=== PATIENT | female | born 1980 | race Caucasian/White ===

== ENCOUNTER 2016-12-20 15:55 | Day surgery (SDC) | payer OTHER, MEDICAID ==
[~2016-12-20 15:55] MED LIST: Bacitracin Oint 1 GM U/D Packet ONE; Bupivacaine 0.5% 50 ML MDV ONE; Lidocaine 1% with EPINEPHrine 1:100,000 50 ML MDV ONE
[2016-12-20] MEDS ORDERED: Lidocaine 1% with EPINEPHrine 1:100,000 50 ML MDV ONE (16:03)
[2016-12-20] MEDS ORDERED: Bacitracin Oint 1 GM U/D Packet ONE (16:03)
[2016-12-20] MEDS ORDERED: Bupivacaine 0.5% 50 ML MDV ONE (16:03)
[2016-12-20 16:14] VITALS: BP 136/83
[2016-12-20] MEDS ORDERED: Propofol 200 MG/20 ML SDV ONE ×2 (16:19→17:43)
[2016-12-20] MEDS ORDERED: fentaNYL 100 MCG/2 ML SDV ONE (16:19)
[2016-12-20] MEDS ORDERED: Midazolam 1 MG/ML 2 ML SDV ONE (16:20)
[2016-12-20] MEDS ORDERED: Lactated Ringers 1,000 ML IV SCH (16:30)
--- NOTE | 2016-12-21 07:36 | OR ---
DATE OF PROCEDURE: 12/20/2016 PREOPERATIVE DIAGNOSIS: Right temporal and eye pain, normal erythrocyte sedimentation rate. POSTOPERATIVE DIAGNOSIS: Right temporal and eye pain, normal erythrocyte sedimentation rate. PROCEDURE: Right temporal artery biopsy removing a 4.7 cm segment of the artery. ANESTHESIA: IV anesthesia with monitored anesthesia care. INDICATIONS: This 36-year-old white female complains of right-sided face pain and right eye pain for a month, it is not getting better. She saw optometry and was concerned about temporal arteritis and was referred for a right temporal artery biopsy. Her sedimentation rate today is normal at 13. I counseled her for right temporal artery biopsy including risks and alternatives, and she gave her informed consent to proceed. DESCRIPTION OF PROCEDURE: After adequate IV anesthesia was obtained, the right side of the patient's face was prepped and draped in the usual sterile fashion. Time-out was held. Lidocaine 1% with epinephrine in a 50:50 mix with 0.5% Marcaine was infiltrated about the course of the temporal artery. This had been previously marked using a Doppler. The planned incision coursed from the preauricular area superiorly and curved anteriorly. The incision was then made in the preauricular area. The artery was identified. It was followed up superiorly and then curved anteriorly. A segment of artery measuring 4.7 cm was excised and sent to the laboratory. 3-0 Vicryl was used to ligate the vessel ends. The incision was irrigated and dried. All looked well. The skin was closed with subcuticular stitch of 4- 0 Vicryl. Dermabond was applied. The patient tolerated the procedure well and was brought from the operating room in good condition. Isai Mars MD /[id number] [email or web address]
== END 2016-12-20 19:10 | disposition home or self-care (01) ==
LOC: JP.SDS 15:55
PROVIDERS: ATTEND Surgery
DX: H57.11 Ocular pain, right eye (principal); F41.9 Anxiety disorder, unspecified; F32.9 Major depressive disorder, single episode, unspecified; E66.9 Obesity, unspecified; Z88.8 Allergy status to other drugs, medicaments and biological substances
CPT/HCPCS: 36415; 37609; 85651; J2250; J2704; J3010; J7120; 88305; 88313

== ENCOUNTER 2020-01-27 11:39 | Emergency (ER) | payer SELFPAY ==
[2020-01-27 11:57] VITALS: BP 152/83; PULSE 123
[2020-01-27] MEDS ORDERED: Silver Sulfadiazine 1% Crm 400 GM Jar TOP ONE (12:04)
[2020-01-27] MEDS ORDERED: Ketorolac 60 MG/2 ML SDV IM ONE (12:04)
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
[2020-01-27] MEDS ORDERED: Silver Sulfadiazine 1% Crm 50 GM Tube TOP ONE (12:30)
== END 2020-01-27 12:55 | disposition home or self-care (01) ==
LOC: JP.ED 11:39
DX: T24.201A Burn of second degree of unspecified site of right lower limb, except ankle and foot, initial encounter (principal); X12.XXXA Contact with other hot fluids, initial encounter; Z88.5 Allergy status to narcotic agent; Z79.899 Other long term (current) drug therapy
CPT/HCPCS: 16020; 96372; 99283; A9270; J1885

== ENCOUNTER 2021-05-29 10:28 | Inpatient (IN) | payer MEDICAID ==
[2021-05-29] MEDS ORDERED: Sodium Chloride 0.9% 10 ML Syringe FLUSH PRN ×2 (11:02→14:59)
[2021-05-29] MEDS ORDERED: Ketorolac 30 MG/ML SDV IVPUSH ONE (11:02)
--- NOTE | 2021-05-29 11:08 | EDM.PDOC ---
ED HPI GENERAL MEDICAL PROBLEM - General Chief Complaint: Abdominal Pain Stated Complaint: BELLY PAIN Time Seen by Provider: 05/29/21 10:50 Source of Information: Reports: Patient, Old Records, RN History Limitations: Reports: No Limitations - History of Present Illness INITIAL COMMENTS - FREE TEXT/NARRATIVE: 41 yo female here with RLQ pain that began yesterday. No fever. No hx of any abdominal surgeries. Has had only a LEEP procedure. Has had intermittent nausea. Pain is progressive. Pain worse with walking, coughing, or sneezing. Onset: Gradual Onset Date: 05/28/21 Duration: Day(s): (1), Getting Worse Location: Reports: Abdomen Quality: Reports: Ache Severity: Moderate Improves with: Reports: None Worsens with: Reports: Other (time, movement) Context: Reports: Other (See HPI) Associated Symptoms: Reports: Nausea/Vomiting (no vomiting). Denies: Fever/Chills, Rash Treatments SHOP GIRL: Reports: Other (see below) (none) - Related Data Allergies Allergy/AdvReac Type Severity Reaction Status Date / Time codeine Allergy Rash Verified 05/29/21 10:45 Home Meds: Home Meds Levonorgestrel [Mirena] 1 device IUTERINE ASDIRECTED 12/20/16 [History] Tretinoin [Retin-A] 1 applic TOP QPM 12/20/16 [History] DULoxetine [Cymbalta] 20 mg PO DAILY 01/27/20 [History] Diclofenac Sodium 1,000 gm MC DAILY 01/27/20 [History] tiZANidine 2 mg PO BID 01/27/20 [History] Past Medical History - Past Health History Medical/Surgical History: Denies Medical/Surgical History HEENT History: Reports: Impaired Vision Cardiovascular History: Reports: None Genitourinary History: Reports: None [employer] 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: Endometriosis, , Other (See Below) Other [employer] History: IUD in Musculoskeletal History: Reports: Arthritis, Back Pain, Chronic Neurological History: Reports: Concussion, Headaches, Chronic Psychiatric History: Reports: Anxiety, Depression - Past Surgical History Head Surgeries/Procedures: Reports: None HEENT Surgical History: Reports: Oral Surgery Other HEENT Surgeries/Procedures: wears contacts Female Surgical History: Reports: D&C, LEEP Neurological Surgical History: Reports: None Musculoskeletal Surgical History: Reports: None Dermatological Surgical History: Reports: None Social & Family History - Tobacco Use Tobacco Use Status *Q: Never Tobacco User - Caffeine Use Caffeine Use: Reports: Coffee Other Caffeine Use: unable to get information - Recreational Drug Use Recreational Drug Use: No ED ROS GENERAL - Review of Systems Review Of Systems: See Below Constitutional: Reports: No Symptoms HEENT: Reports: No Symptoms Respiratory: Reports: No Symptoms Cardiovascular: Reports: No Symptoms GI/Abdominal: Reports: Abdominal Pain, Nausea. Denies: Vomiting : Reports: Frequency Musculoskeletal: Reports: No Symptoms Skin: Reports: No Symptoms Neurological: Reports: No Symptoms ED EXAM, GI/ABD - Physical Exam Exam: See Below Exam Limited By: No Limitations General Appearance: Alert, WD/WN, No Apparent Distress Eyes: Bilateral: Normal Appearance Ears: Normal External Exam, Normal Canal, Hearing Grossly Normal, Normal TMs Nose: Normal Inspection, No Blood Throat/Mouth: Normal Inspection, Normal Lips, Normal Oropharynx, Normal Voice, No Airway Compromise Head: Atraumatic, Normocephalic Neck: Normal Inspection, Non-Tender Respiratory/Chest: No Respiratory Distress, Lungs Clear, Normal Breath Sounds, No Accessory Muscle Use Cardiovascular: Regular Rate, Rhythm, No Edema GI/Abdominal Exam: Normal Bowel Sounds, Soft, Non-Tender, No Distention. No: Distended Back Exam: Normal Inspection. No: CVA Tenderness (R), CVA Tenderness (L) Extremities: Normal Inspection, Normal Range of Motion, Non-Tender, No Pedal Edema Neurological: Alert, Oriented, CN II-XII Intact, Normal Cognition, No Motor/Sensory Deficits Psychiatric: Normal Affect, Normal Mood Skin Exam: Warm, Dry, Intact, Normal Color, No Rash Course - Vital Signs Text/Narrative:: Dr. Jacquelin Tello called @ 1308h Dr. Dodd called @ 1312h Last Recorded V/S: Last Vital Signs Temp 35.7 C L 05/29/21 10:46 Pulse 98 05/29/21 10:46 Resp 17 05/29/21 10:46 BP 143/85 H 05/29/21 10:46 Pulse Ox 100 05/29/21 10:46 - Orders/Labs/Meds Orders: Active Orders 24 hr Category Date Time Status Sodium Chloride 0.9% [Normal Saline] 80 ml Med 05/29/21 12:00 Active IV ASDIRECTED Sodium Chloride 0.9% [Saline Flush] Med 05/29/21 11:02 Active 10 ml FLUSH ASDIRECTED PRN Saline Lock Insert [OM.PC] Routine Oth 05/29/21 11:02 Ordered Medication Orders Sodium Chloride (Normal Saline) 80 mls @ 3 mls/sec IV ASDIRECTED JUDI Stop: 05/29/21 16:00 Last Admin: 05/29/21 12:13 Dose: 3 mls/sec Documented by: NAILA Sodium Chloride (Sodium Chloride 0.9% 10 Ml Syringe) 10 ml FLUSH ASDIRECTED PRN PRN Reason: Keep Vein Open Last Admin: 05/29/21 11:15 Dose: 10 ml Documented by: TWIN Labs: Laboratory Tests 05/29/21 05/29/21 05/29/21 Range/Units 11:06 11:06 11:45 WBC 18.0 H (4.5-11.0) K/uL RBC 4.21 (3.30-5.50) M/uL Hgb 13.7 (12.0-15.0) g/dL Hct 38.8 (36.0-48.0) % MCV 92 (80-98) fL MCH 33 H (27-31) pg MCHC 35 (32-36) % Plt Count 178 (150-400) K/uL Sodium 134 L (140-148) mmol/L Potassium 3.9 (3.6-5.2) mmol/L Chloride 99 L (100-108) mmol/L Carbon Dioxide 25 (21-32) mmol/L Anion Gap 13.9 (5.0-14.0) mmol/L BUN 9 (7-18) mg/dL Creatinine 0.8 (0.6-1.0) mg/dL Est Cr Clr Drug Dosing 96.71 mL/min Estimated GFR (MDRD) > 60 (>60) Glucose 118 H (74-106) mg/dL Calcium 9.3 (8.5-10.1) mg/dL Urine Color Yellow (YELLOW) Urine Appearance Clear (CLEAR) Urine pH 6.5 (5.0-8.0) Ur Specific [place] 1.015 (1.008-1.030) Urine Protein Negative (NEGATIVE) mg/dL Urine Glucose (UA) Negative (NEGATIVE) mg/dL Urine Ketones 80 H (NEGATIVE) mg/dL Urine Occult Blood Negative (NEGATIVE) Urine Nitrite Negative (NEGATIVE) Urine Bilirubin Negative (NEGATIVE) Urine Urobilinogen 0.2 (0.2-1.0) EU/dL Ur Leukocyte Esterase Small H (NEGATIVE) Urine RBC Not seen (0-5) Urine WBC 0-5 (0-5) Ur Epithelial Cells Many Amorphous Sediment Few Urine Bacteria Moderate Urine Mucus Many Urine HCG, Qual 05/29/21 Range/Units 11:45 WBC (4.5-11.0) K/uL RBC (3.30-5.50) M/uL Hgb (12.0-15.0) g/dL Hct (36.0-48.0) % MCV (80-98) fL MCH (27-31) pg MCHC (32-36) % Plt Count (150-400) K/uL Sodium (140-148) mmol/L Potassium (3.6-5.2) mmol/L Chloride (100-108) mmol/L Carbon Dioxide (21-32) mmol/L Anion Gap (5.0-14.0) mmol/L BUN (7-18) mg/dL Creatinine (0.6-1.0) mg/dL Est Cr Clr Drug Dosing mL/min Estimated GFR (MDRD) (>60) Glucose (74-106) mg/dL Calcium (8.5-10.1) mg/dL Urine Color (YELLOW) Urine Appearance (CLEAR) Urine pH (5.0-8.0) Ur Specific [place] (1.008-1.030) Urine Protein (NEGATIVE) mg/dL Urine Glucose (UA) (NEGATIVE) mg/dL Urine Ketones (NEGATIVE) mg/dL Urine Occult Blood (NEGATIVE) Urine Nitrite (NEGATIVE) Urine Bilirubin (NEGATIVE) Urine Urobilinogen (0.2-1.0) EU/dL Ur Leukocyte Esterase (NEGATIVE) Urine RBC (0-5) Urine WBC (0-5) Ur Epithelial Cells Amorphous Sediment Urine Bacteria Urine Mucus Urine HCG, Qual Negative Meds: Medications Generic Name Dose Route Start Last Admin Trade Name Freq PRN Reason Stop Dose Admin Sodium Chloride 80 mls @ 3 mls/sec 05/29/21 12:00 05/29/21 12:13 Normal Saline IV 05/29/21 16:00 3 mls/sec ASDIRECTED JUDI Administration Sodium Chloride 10 ml 05/29/21 11:02 05/29/21 11:15 Sodium Chloride 0.9% 10 Ml Syringe FLUSH 10 ml ASDIRECTED PRN Administration Keep Vein Open Discontinued Medications Generic Name Dose Route Start Last Admin Trade Name Nelda PRN Reason Stop Dose Admin Iopamidol 120 ml 05/29/21 12:00 05/29/21 12:13 Iopamidol 612 Mg/Ml 150 Ml Bottle IV 05/29/21 12:01 120 ml . DIRECTED JUDI Administration Ketorolac Tromethamine 30 mg 05/29/21 11:02 05/29/21 11:13 Ketorolac 30 Mg/Ml Sdv IVPUSH 05/29/21 11:03 30 mg ONETIME ONE Administration Sodium Chloride 10 ml 05/29/21 11:46 05/29/21 12:13 Sodium Chloride 0.9% 10 Ml Syringe FLUSH 05/29/21 11:47 10 ml ONETIME ONE Administration - Radiology Interpretation Free Text/Narrative:: CT scan of abd/pelvis with IV contrast- Departure - Departure Time of Disposition: 13:45 Disposition: Admitted As Inpatient 66 Condition: Fair Clinical Impression: Acute appendicitis Qualifiers: Acute appendicitis type: with localized peritonitis Appendicitis gangrene presence: unspecified whether gangrene present Appendicitis perforation presence: without perforation Appendicitis abscess presence: without abscess Qualified Code(s): K35.30 - Acute appendicitis with localized peritonitis, without perforation or gangrene - Discharge Information *PRESCRIPTION DRUG MONITORING PROGRAM REVIEWED*: Not Applicable *COPY OF PRESCRIPTION DRUG MONITORING REPORT IN PATIENT TING: Not Applicable Referrals: Stevenson Buchanan MD [Primary Care Provider] - Forms: ED Department Discharge Sepsis Event Note (ED) - Focused Exam Vital Signs: Vital Signs Temp Pulse Resp BP Pulse Ox 05/29/21 10:46 35.7 C L 98 17 143/85 H 100 05/29/21 10:44 35.7 C L 98 17 143/85 H 100 - My Orders Last 24 Hours: My Active Orders 05/29/21 11:02 Sodium Chloride 0.9% [Saline Flush] 10 ml FLUSH ASDIRECTED PRN Saline Lock Insert [OM.PC] Routine 05/29/21 12:00 Sodium Chloride 0.9% [Normal Saline] 80 ml IV ASDIRECTED - Assessment/Plan Last 24 Hours: My Active Orders 05/29/21 11:02 Sodium Chloride 0.9% [Saline Flush] 10 ml FLUSH ASDIRECTED PRN Saline Lock Insert [OM.PC] Routine 05/29/21 12:00 Sodium Chloride 0.9% [Normal Saline] 80 ml IV ASDIRECTED
[2021-05-29] MEDS ORDERED: Sodium Chloride 0.9% 10 ML Syringe FLUSH ONE (11:46)
[2021-05-29] MEDS ORDERED: Sodium Chloride 0.9% 80 ML IV SCH (12:00)
[2021-05-29] MEDS ORDERED: Iopamidol 612 MG/ML 150 ML Bottle IV SCH (12:00)
--- NOTE | 2021-05-29 12:56 | CRLCT ---
For Patients: As a result of the Century Cures Act, medical imaging exams and procedure reports are released immediately into your electronic medical record. You may view this report before your referring provider. If you have questions, please contact your health care provider. HISTORY: Right lower quadrant abdominal pain. TECHNIQUE: Intravenous contrast enhanced CT of the abdomen and pelvis. 120 mL of intravenous contrast administered. COMPARISON: No prior. FINDINGS: No focal liver parenchymal abnormality. No biliary duct dilatation. Gallbladder is mildly distended. The spleen and adrenal glands are normal. No focal pancreatic abnormality. Symmetric nephrograms. No renal mass. No obstructive calculus or hydronephrosis. Urinary bladder is nondistended. Pelvic calcifications likely represent phleboliths. There is an IUD within the uterus. Small follicles within the left ovary. - No small bowel obstruction. Appendix is dilated measuring 12 mm. There is mild haziness of the periappendiceal fat. Findings compatible with appendicitis. Trace amount of right posterior pelvic free fluid without localized collection. No free intraperitoneal air. No diverticulitis. Small fat containing umbilical hernia. - No abdominal aortic aneurysm. - Mild atelectasis within the lungs. No consolidation. No pleural effusion. - Degenerative changes of the spine. No acute fractures. Degenerative changes of the sacroiliac joints. Mild degenerative changes of the hips. IMPRESSION: 1. Dilated appendix measuring 12 mm with periappendiceal fat haziness, compatible with appendicitis. 2. No abscess or free air. - Findings discussed with Dr. Lazo on 05/29/2021 at 12:55 hours. Dictated by Thai Colbert MD @ 05/29/2021 12:45:30 PM Please note that all CT scans at this facility use dose modulation, iterative reconstruction, and/or weight-based dosing when appropriate to reduce radiation dose to as low as reasonably achievable. Dictated by: Thai Colbert MD @ 05/29/2021 12:55:27 (Electronically Signed)
--- NOTE | 2021-05-29 13:42 | PCM.HP.2 ---
H&P History of Present Illness - General Date of Service: 05/29/21 Admit Problem/Dx: Admission Diagnosis/Problem Admission Diagnosis/Problem Appendicitis Source of Information: Patient, Provider, RN Notes Reviewed History Limitations: Reports: No Limitations - History of Present Illness Initial Comments - Free Text/Narative: Ms. Simpson is a 41-year-old woman who was admitted through the emergency department with nausea and abdominal pain secondary to acute appendicitis. She noted onset of abdominal pain yesterday associated with nausea and has had 2 episodes of vomiting. She is noted chills and diaphoresis but denies temperature elevation. Because of progressive pain she presented to the emergency department for further evaluation. White blood cell count and CRP are elevated. CT scan of the abdomen shows evidence of acute appendicitis with no obvious complications. - Related Data Allergies/Adverse Reactions: Allergies Allergy/AdvReac Type Severity Reaction Status Date / Time codeine Allergy Rash Verified 05/29/21 10:45 Home Medications: Home Meds Levonorgestrel [Mirena] 1 device IUTERINE ASDIRECTED 12/20/16 [History] Tretinoin [Retin-A] 1 applic TOP QPM 12/20/16 [History] DULoxetine [Cymbalta] 20 mg PO DAILY 01/27/20 [History] Diclofenac Sodium 1,000 gm MC DAILY 01/27/20 [History] tiZANidine 2 mg PO BID 01/27/20 [History] Past Medical History - Past Health History Medical/Surgical History: Denies Medical/Surgical History HEENT History: Reports: Impaired Vision Cardiovascular History: Reports: None Genitourinary History: Reports: None MANAGER TRAINING AND DEVELOPMENT History: Reports: Endometriosis, , Other (See Below) Other OB/BYN History: IUD in Musculoskeletal History: Reports: Arthritis, Back Pain, Chronic Neurological History: Reports: Concussion, Headaches, Chronic Psychiatric History: Reports: Anxiety, Depression - Past Surgical History Head Surgeries/Procedures: Reports: None HEENT Surgical History: Reports: Oral Surgery Other HEENT Surgeries/Procedures: wears contacts Female Surgical History: Reports: D&C, LEEP Neurological Surgical History: Reports: None Musculoskeletal Surgical History: Reports: None Dermatological Surgical History: Reports: None Social & Family History - Tobacco Use Tobacco Use Status *Q: Never Tobacco User - Caffeine Use Caffeine Use: Reports: Coffee Other Caffeine Use: unable to get information - Recreational Drug Use Recreational Drug Use: No H&P Review of Systems - Review of Systems: Review Of Systems: See Below General: Reports: Chills, Malaise, Diaphoresis, Decreased Appetite HEENT: Reports: No Symptoms Pulmonary: Reports: No Symptoms Cardiovascular: Reports: No Symptoms Gastrointestinal: Reports: Abdominal Pain, Diarrhea, Distension, Nausea, Vomiting. Denies: Constipation, Difficulty Swallowing, Hematemesis, Hematochezia, Melena Genitourinary: Reports: No Symptoms Musculoskeletal: Reports: No Symptoms Skin: Reports: No Symptoms Psychiatric: Reports: No Symptoms Neurological: Reports: No Symptoms Hematologic/Lymphatic: Reports: No Symptoms Immunologic: Reports: No Symptoms Exam - Exam Exam: See Below - Vital Signs Vital Signs: Last Vital Signs Temp 96.3 F L 05/29/21 10:46 Pulse 98 05/29/21 10:46 Resp 17 05/29/21 10:46 BP 143/85 H 05/29/21 10:46 Pulse Ox 100 05/29/21 10:46 Weight: 195 lb 1.745 oz - Exam Quality Assessment: DVT Prophylaxis General: Alert, Oriented, Cooperative, Moderate Distress HEENT: Conjunctiva Clear, Hearing Intact, Mucosa Moist & Dunn, Normal Nasal S eptum, Posterior Pharynx Clear, Pupils Equal Neck: Supple, Trachea Midline, +2 Carotid Pulse wo Bruit Lungs: Clear to Auscultation, Normal Respiratory Effort Cardiovascular: Regular Rate, Regular Rhythm, Normal S1, Normal S2. No: Systolic Murmur, Diastolic Murmur GI/Abdominal Exam: Soft, Non-Tender, No Organomegaly, No Distention Back Exam: Normal Inspection, Full Range of Motion Extremities: Non-Tender, No Pedal Edema Skin: Warm, Dry, Intact Neurological: Cranial Nerves Intact, Strength Equal Bilateral, Normal Speech, Normal Tone, Sensation Intact. No: Focal Deficit Neuro Extensive - Mental Status: Alert, Oriented x3, Normal Mood/Affect, Normal Cognition, Memory Intact - Patient Data Lab Results Last 24 hrs: Laboratory Results - last 24 hr 05/29/21 05/29/21 05/29/21 Range/Units 11:06 11:06 11:45 WBC 18.0 H (4.5-11.0) K/uL RBC 4.21 (3.30-5.50) M/uL Hgb 13.7 (12.0-15.0) g/dL Hct 38.8 (36.0-48.0) % MCV 92 (80-98) fL MCH 33 H (27-31) pg MCHC 35 (32-36) % Plt Count 178 (150-400) K/uL Sodium 134 L (140-148) mmol/L Potassium 3.9 (3.6-5.2) mmol/L Chloride 99 L (100-108) mmol/L Carbon Dioxide 25 (21-32) mmol/L Anion Gap 13.9 (5.0-14.0) mmol/L BUN 9 (7-18) mg/dL Creatinine 0.8 (0.6-1.0) mg/dL Est Cr Clr Drug Dosing 96.71 mL/min Estimated GFR (MDRD) > 60 (>60) Glucose 118 H (74-106) mg/dL Calcium 9.3 (8.5-10.1) mg/dL Urine Color Yellow (YELLOW) Urine Appearance Clear (CLEAR) Urine pH 6.5 (5.0-8.0) Ur Specific [place] 1.015 (1.008-1.030) Urine Protein Negative (NEGATIVE) mg/dL Urine Glucose (UA) Negative (NEGATIVE) mg/dL Urine Ketones 80 H (NEGATIVE) mg/dL Urine Occult Blood Negative (NEGATIVE) Urine Nitrite Negative (NEGATIVE) Urine Bilirubin Negative (NEGATIVE) Urine Urobilinogen 0.2 (0.2-1.0) EU/dL Ur Leukocyte Esterase Small H (NEGATIVE) Urine RBC Not seen (0-5) Urine WBC 0-5 (0-5) Ur Epithelial Cells Many Amorphous Sediment Few Urine Bacteria Moderate Urine Mucus Many Urine HCG, Qual 05/29/21 Range/Units 11:45 WBC (4.5-11.0) K/uL RBC (3.30-5.50) M/uL Hgb (12.0-15.0) g/dL Hct (36.0-48.0) % MCV (80-98) fL MCH (27-31) pg MCHC (32-36) % Plt Count (150-400) K/uL Sodium (140-148) mmol/L Potassium (3.6-5.2) mmol/L Chloride (100-108) mmol/L Carbon Dioxide (21-32) mmol/L Anion Gap (5.0-14.0) mmol/L BUN (7-18) mg/dL Creatinine (0.6-1.0) mg/dL Est Cr Clr Drug Dosing mL/min Estimated GFR (MDRD) (>60) Glucose (74-106) mg/dL Calcium (8.5-10.1) mg/dL Urine Color (YELLOW) Urine Appearance (CLEAR) Urine pH (5.0-8.0) Ur Specific [place] (1.008-1.030) Urine Protein (NEGATIVE) mg/dL Urine Glucose (UA) (NEGATIVE) mg/dL Urine Ketones (NEGATIVE) mg/dL Urine Occult Blood (NEGATIVE) Urine Nitrite (NEGATIVE) Urine Bilirubin (NEGATIVE) Urine Urobilinogen (0.2-1.0) EU/dL Ur Leukocyte Esterase (NEGATIVE) Urine RBC (0-5) Urine WBC (0-5) Ur Epithelial Cells Amorphous Sediment Urine Bacteria Urine Mucus Urine HCG, Qual Negative Result Diagrams: 05/29/21 11:06 05/29/21 11:06 Sepsis Event Note - Focused Exam Vital Signs: Vital Signs Temp Pulse Resp BP Pulse Ox 05/29/21 10:46 96.3 F L 98 17 143/85 H 100 05/29/21 10:44 96.3 F L 98 17 143/85 H 100 *Q Meaningful Use (ADM) - VTE Risk Assess *Q Each Risk Factor Represents 1 Point: Age 41 - 59 years, Obesity ( BMI > 25 kg/m2) Total Score 1 Point Risk Factors: 2 Each Risk Factor Represents 2 Points: None Total Score 2 Point Risk Factors: 0 Each Risk Factor Represents 3 Points: None Total Score 3 Point Risk Factors: 0 Each Risk Factor Represents 5 Points: None Total Score 5 Point Risk Factors: 0 Venous Thromboembolism Risk Factor Score *Q: 2 Problem List Initiated/Reviewed/Updated: Yes Orders Last 24hrs: Active Orders 24 hr Category Date Time Status Patient Status Manage Transfer [TRANSFER] Routine ADT 05/29/21 13:31 Active Ampicillin/Sulbactam Na [Unasyn] 1.5 gm Med 05/29/21 13:45 Ordered Sodium Chloride 0.9% [Normal Saline] 50 ml IV Q6HR Sodium Chloride 0.9% [Normal Saline] 80 ml Med 05/29/21 12:00 Active IV ASDIRECTED Sodium Chloride 0.9% [Saline Flush] Med 05/29/21 11:02 Active 10 ml FLUSH ASDIRECTED PRN Saline Lock Insert [OM.PC] Routine Oth 05/29/21 11:02 Ordered Resuscitation Status Routine Resus Stat 05/29/21 13:36 Ordered Medication Orders Sodium Chloride (Normal Saline) 80 mls @ 3 mls/sec IV ASDIRECTED JUDI Stop: 05/29/21 16:00 Last Admin: 05/29/21 12:13 Dose: 3 mls/sec Documented by: THELAS Ampicillin Sodium/Sulbactam (Sodium 1.5 gm/ Sodium Chloride) 50 mls @ 100 mls/hr IV Q6HR JUDI Sodium Chloride (Sodium Chloride 0.9% 10 Ml Syringe) 10 ml FLUSH ASDIRECTED PRN PRN Reason: Keep Vein Open Last Admin: 05/29/21 11:15 Dose: 10 ml Documented by: TWIN Assessment/Plan Comment:: ASSESSMENT AND PLAN ACUTE APPENDICITIS-onset of symptoms yesterday with progressive increase in abdominal pain since then. Dr. Tello has been contacted through the emergency department and requests admission. -N.p.o. -Surgery consult, Dr. Tello -IV fluids for hydration -Pain and nausea medications as needed -Unasyn 1.5 g IV every 6 hours MAINTENANCE ISSUES -DVT prophylaxis; SCUDs -GI prophylaxis; not indicated -Aiken catheter; not indicated -Nutrition; n.p.o. -Nicotine dependence; not required CODE STATUS-FULL CODE ADMISSION STATUS-patient will be admitted to inpatient status, expect at least a 2 night hospital stay for evaluation and management of problems as outlined above. At the time of this admission I do not reasonably expected evaluation and management of this problem will require more than a 96 hour hospital stay. DISPOSITION-anticipate discharge to home after the hospital stay. PRIMARY CARE PROVIDER-Dr. Buchanan - Mortality Measure Prognosis:: Good
[2021-05-29] MEDS ORDERED: Ampicillin/Sulbactam Na 1.5 GM in Sodium Chloride 0.9% 50 ML IV SCH (14:00)
[2021-05-29] MEDS: HYDROmorphone 0.5 MG/0.5 ML Syringe IVPUSH PRN ×3 (15:17→20:35)
[2021-05-29] MEDS: Ampicillin/Sulbactam Na 1.5 GM in Sodium Chloride 0.9% 50 ML IV SCH ×2 (15:21→20:30)
[2021-05-29] MEDS: Ondansetron 4 MG/2 ML SDV IV PRN ×2 (15:21→20:35)
[2021-05-29] MEDS: Lactated Ringers 1,000 ML IV SCH ×2 (15:43→23:30)
[2021-05-29] MEDS ORDERED: TRETINOIN TOP SCH (17:00)
[2021-05-30] MEDS: Ampicillin/Sulbactam Na 1.5 GM in Sodium Chloride 0.9% 50 ML IV SCH ×4 (03:56→21:07)
[2021-05-30] MEDS ORDERED: Bupivacaine 0.5%/EPINEPHrine 1:200,000 50 ML MDV ONE (07:00)
[2021-05-30] MEDS ORDERED: fentaNYL 250 MCG/5 ML SDV ONE ×2 (07:11→08:49)
[2021-05-30] MEDS ORDERED: Succinylcholine 200 MG/10 ML MDV ONE (07:12)
[2021-05-30] MEDS ORDERED: Glycopyrrolate 0.2 MG/ML 5 ML MDV ONE (07:12)
[2021-05-30] MEDS ORDERED: Rocuronium 50 MG/5 ML Vial ONE (07:12)
[2021-05-30] MEDS ORDERED: Ondansetron 4 MG/2 ML SDV ONE (07:12)
[2021-05-30] MEDS ORDERED: Dexamethasone 4 MG/ML SDV ONE (07:12)
[2021-05-30] MEDS ORDERED: Neostigmine Methylsulfate 1 MG/ML 5 ML Syringe ONE (07:12)
[2021-05-30] MEDS ORDERED: Propofol 200 MG/20 ML SDV ONE (07:12)
[2021-05-30] MEDS: Ondansetron 4 MG/2 ML SDV IV PRN ×2 (07:26→16:37)
[2021-05-30] MEDS: HYDROmorphone 0.5 MG/0.5 ML Syringe IVPUSH PRN ×2 (07:26→11:07)
[2021-05-30] MEDS ORDERED: Ropivacaine 44 ML, dexAMETHasone 8 MG, EPINEPHrine 0.4 MG, Sodium Chloride 0.9% 33.6 ML NERVRT SCH ×4 (08:00)
[2021-05-30] MEDS ORDERED: DULoxetine 20 MG Cap PO SCH (09:00)
[2021-05-30] MEDS ORDERED: fentaNYL 100 MCG/2 ML SDV IVPUSH ONE (09:44)
[2021-05-30] MEDS ORDERED: hydrOXYzine HCL 100 MG/2 ML SDV IM ONE (09:44)
--- NOTE | 2021-05-30 10:00 | HP ---
HISTORY OF PRESENT ILLNESS: Carmen is n.p.o. She came into the emergency room yesterday with nausea, abdominal pain, and was diagnosed with an acute appendicitis. HOME MEDICATIONS: 1. Mirena IUD. 2. Retin-A one topical. 3. Cymbalta 20 mg p.o. daily. 4. Diclofenac sodium 1,000 gm daily. 5. Tizanidine 2 mg p.o. b.i.d. ALLERGIES: CODEINE, WHICH CAUSES A RASH. PAST MEDICAL HISTORY: Wears corrective lenses, history of endometriosis, arthritis, chronic back pain, chronic headaches, anxiety and depression. PAST SURGICAL HISTORY: Includes D and C and LEEP procedure and oral surgery. SOCIAL HISTORY: She is , has 2 children who are autistic, ages 4-1/2 and 6-1/2. , employed at [employer]. Does not smoke. Drinks coffee. Rare carbonation. REVIEW OF SYSTEMS: CONSTITUTIONAL: Reports low abdominal pain with the greatest pain in the right lower quadrant. Has had some chills. No appetite. HEENT: No headache. LUNGS: No shortness of breath or cough. CARDIOVASCULAR: No chest pain. GASTROINTESTINAL: Abdominal pain. Has had some diarrhea, distention, nausea, and vomiting. Has not had any nausea or vomiting since being in the hospital. GENITOURINARY: Negative. MUSCULOSKELETAL: Negative. SKIN: Negative for rash. PSYCHIATRIC: Anxiety and depression controlled with medication. Remainder of review of systems negative for any pertinent positives and negatives. PHYSICAL EXAMINATION: GENERAL: Carmen Simpson is a pleasant 41-year-old female. VITAL SIGNS: Height is 5 feet 9 inches, weight 196 pounds. TPR is 97, 94, 16, blood pressure 108/66. HEENT: Negative. NECK: Supple. HEART: Regular rate and rhythm. LUNGS: Clear. ABDOMEN: Slightly distended. Right lower quadrant pain with very minimal palpation. EXTREMITIES: Without peripheral edema. NEUROLOGIC: Cranial nerves 2 through 12 intact. PSYCHIATRIC: Mood and affect appropriate. SKIN: Without rash. LABORATORY DATA: 11.4 and her sodium this morning is . ASSESSMENT: Acute appendicitis. PLAN: Schedule and have consent signed for laparoscopic possible laparotomy, appendectomy, general anesthesia with TAP block. Give Unasyn next dose on-call to OR, Dr. Gonzalo Tello, surgeon, N.P.O. Postop orders will be written. After preoperative evaluation and discussion of possible risks and possible complications, the patient wishes to proceed with surgical procedure, and after preoperative evaluation, the patient is cleared for general anesthesia. Smitha Camacho PA-C /[id number]
[2021-05-30] MEDS ORDERED: Dextrose 5%-Lactated Ringers 1,000 ML IV SCH (11:15)
[2021-05-30] MEDS ORDERED: Benzocaine/Cetylpyridinium/Menthol Lozenge MUCMEM PRN (11:25)
[2021-05-30] MEDS ORDERED: hydrOXYzine HCL 100 MG/2 ML SDV IM PRN (12:00)
[2021-05-30] MEDS ORDERED: HYDROmorphone 1 MG/ML Syringe IV PRN (12:00)
[2021-05-30] MEDS: tiZANidine 2 MG Tab PO PRN ×2 (12:01→21:44)
[2021-05-30] MEDS: Acetaminophen 500 MG Tab PO SCH ×3 (14:11→23:09)
[2021-05-30] MEDS: Dextrose 5%-Lact Ringers w/KCl 1,000 ML IV SCH (17:12)
[2021-05-30] MEDS: oxyCODONE 5 MG Tab PO PRN (21:06)
[2021-05-30] MEDS ORDERED: busPIRone 10 MG Tab PO SCH (21:30)
[2021-05-30] MEDS ORDERED: DULoxetine 30 MG Cap PO SCH (21:30)
[2021-05-30] MEDS: Gabapentin 300 MG Cap PO SCH (21:37)
[2021-05-31] MEDS: Dextrose 5%-Lact Ringers w/KCl 1,000 ML IV SCH (02:15)
[2021-05-31] MEDS: Ampicillin/Sulbactam Na 1.5 GM in Sodium Chloride 0.9% 50 ML IV SCH ×2 (02:17→09:04)
[2021-05-31] MEDS: oxyCODONE 5 MG Tab PO PRN ×2 (02:18→06:10)
[2021-05-31] MEDS: Acetaminophen 500 MG Tab PO SCH (06:10)
[2021-05-31 08:45] VITALS: BP 135/74; PULSE 73
[2021-05-31] MEDS: Gabapentin 300 MG Cap PO SCH (08:51)
[2021-05-31] MEDS ORDERED: busPIRone 5 MG Tab PO SCH (09:00)
[2021-05-31] MEDS ORDERED: DICLOFENAC PO SCH (09:00)
[2021-05-31] MEDS ORDERED: Magnesium Hydroxide 400 MG/5 ML Susp 30 ML Cup PO ONE (09:00)
--- NOTE | 2021-05-31 10:46 | DISCH ---
ADMISSION DIAGNOSIS: Acute appendicitis. DISCHARGE DIAGNOSIS: Diagnostic laparoscopy with appendectomy and drainage of periappendiceal abscess. POSTOPERATIVE DIAGNOSIS: Acute appendicitis with focal periappendiceal abscess. Date of procedure 05/30/2021. Surgeon: Gonzalo Tello MD. HISTORY: Carmen Simpson is a pleasant 41-year-old female presented to the emergency room with acute right lower quadrant abdominal pain. After preoperative evaluation and discussion of possible risks and possible complications, she wished to proceed with surgical procedure. HOSPITAL COURSE: Carmen had her surgery on 05/30/2021. She had no operative complications. On postoperative day #1, she was able to be discharged to home. PHYSICAL EXAMINATION: GENERAL: Carmen is a pleasant 41-year-old female. Height is 5 feet 9 inches, weight is 196 pounds. VITAL SIGNS: TPR is 97.2, 74, 18, blood pressure 124/71. HEENT: Negative. NECK: Supple. HEART: Regular rate and rhythm. LUNGS: Clear. ABDOMEN: Dressings dry and intact. Abdominal binder is on. EXTREMITIES: Without peripheral edema. DISPOSITION: Discharged to home. CONDITION: Stable and improving. FOLLOWUP APPOINTMENT: With Gonzalo Tello MD, on 06/08/2021 at 8:30 a.m. HOME MEDICATIONS: Augmentin 875 mg one p.o. b.i.d. #10 and oxycodone 5 mg p.o. q.4 h p.r.n. pain #12, Tylenol 1000 mg q.6 hours p.r.n. pain. Resume home medications. DIET: Usual diet as tolerated. Drink 8 to 10 glasses of water a day. ACTIVITY: No lifting greater than 10 pounds for 2 weeks. Driving: Do not drive for 1 week or within 8 hours of taking oxycodone. Shower/bathing: May shower. Keep operative site clean and dry. Wear abdominal binder for 2 weeks and as tolerated. Notify provider if any fever, increased pain, swelling, redness, drainage, nausea, vomiting. Use incentive spirometer 10 times every hour while awake. /[id number]
[2021-05-31] MEDS ORDERED: DULoxetine 30 MG Cap PO SCH (21:00)
[2021-05-31] MEDS ORDERED: Diclofenac Sodium 50 MG Tab.EC PO SCH (21:00)
--- NOTE | 2021-06-01 15:39 | OR ---
DATE OF PROCEDURE: 05/30/2021 SURGEON: Gonzalo Tello MD PREOPERATIVE DIAGNOSIS: Acute appendicitis. POSTOPERATIVE DIAGNOSIS: Acute appendicitis with focal perforation and small periappendiceal abscess. OPERATIVE PROCEDURE: Diagnostic laparoscopy with appendectomy with drainage of periappendiceal abscess ([id number]). ANESTHESIA: General. DIPPER AND DRIER: Smitha Camacho PA-C INDICATIONS FOR PROCEDURE: 41-year-old admitted yesterday afternoon with a picture of acute appendicitis. She has continued to be somewhat tender this morning and plan will be to proceed with a laparoscopic appendectomy. Potential risks of the procedure including bleeding, infection, need to convert to an open procedure, problems with appendectomy stump leaking, or more extensive procedure being required such as major bowel resection were all gone over along with the remote possibility of cardiopulmonary, septic, or hemorrhagic complications leading to , and the patient wishes to proceed. DETAILS OF PROCEDURE: Patient was taken to the operating room, placed in a supine position. Aiken catheter was inserted which was removed at the end of the procedure, and the abdomen prepped and draped. 3 fingerbreadths superior and to the left of the umbilicus a transverse incision was made and peritoneal cavity entered under direct vision with an Optiview trocar, inflated to 15 mmHg pressure with CO2. Laparoscope was then reinserted. No underlying trocar insertion site injuries were seen. Following this, a 12 mm trocar was placed in the left lower quadrant and right upper quadrant. Patient was noted to have an area of inflammation in the area just inferior to the cecum. This was gradually dissected free using primarily blunt dissection. This allowed mobilization of the appendix. It did have a focal perforation near its base, and there was roughly 5 to 10 mL of purulent collection adjacent to the appendix consistent with periappendiceal abscess. This was evacuated and cultures were obtained. The appendix was then mobilized upward. The base of appendix was fairly clean in terms of inflammation and mesentery of the appendix adjacent to the cecum was opened with blunt dissection. The junction of the appendix and cecum was divided with a PANDA stapler. The mesoappendix was then divided with a Harmonic scalpel. Specimen was then placed into a specimen bag and retrieved through the left lower quadrant trocar site without any contamination of the abdominal wall during that process. The area of dissection was inspected. Some bleeding along the staple line was noted. This was cauterized and given the , it was also reinforced with some fibrin sealant and an omental patch being placed over the appendectomy closure site. A 5 mm trocar was placed in the right flank and a Edson-Juan drain was then placed into the abdomen and across the area of the appendectomy closure and from there into the pelvis. At this point, no further problems were noted. Bilateral transversus abdominis plane blocks had been placed. The trocars were then sequentially removed. The fascia of the trocar sites was closed with 0 Vicryl stitch and skin with 4-0 Vicryl skin stitch. In addition to the transversus abdominis plane blocks, the incisions were anesthetized with 1% lidocaine mixed with Marcaine, and patient taken to the recovery room in satisfactory condition. Physician nurses medical assistants phlebotomists, Smitha Camacho, played an essential role in assisting in this case, helping to position the patient, retract structures as needed, as well as suturing and cutting sutures when indicated. Her presence improved patient safety and decreased operative time. Gonzalo Tello MD /[id number]
== END 2021-05-31 09:10 | disposition home or self-care (01) | DRG 340 ==
LOC: JP.ED 10:28 → JP.MS 13:31
PROVIDERS: ADMIT Hospitalist; ATTEND Surgery
PROC: 0DTJ4ZZ Resection of Appendix, Percutaneous Endoscopic Approach (ICD-10-PCS; principal; 2021-05-30)
DX: K35.33 Acute appendicitis with perforation, localized peritonitis, and gangrene, with abscess (principal); Z88.5 Allergy status to narcotic agent; H54.7 Unspecified visual loss; M19.90 Unspecified osteoarthritis, unspecified site; M54.9 Dorsalgia, unspecified; Z20.822 Contact with and (suspected) exposure to COVID-19; G89.29 Other chronic pain; F41.9 Anxiety disorder, unspecified; F32.A Depression, unspecified; Z79.899 Other long term (current) drug therapy
CPT/HCPCS: 36415; 74177; 80048; 81001; 81025; 85025; 85027; 87070; 87075; 87077; 87186; 87205; 88304; 94762; 96374; 99285-25; A9270-GY; J0171; J0295; J0330; J1100; J1170; J1885; J2405; J2704; J2710; J2795; J3010; J3410; J3480; J3490; J7120; J7121; Q9967; U0002

== ENCOUNTER 2023-08-09 18:56 | Emergency (ER) | payer BC, MEDICAID ==
[2023-08-09 19:14] VITALS: BP 174/89; PULSE 109
[2023-08-09] MEDS ORDERED: Lidocaine 1% 10 ML MDV INJECT ONE (19:31)
[2023-08-09] MEDS ORDERED: Ibuprofen 600 MG Tab PO ONE (19:31)
[2023-08-09] MEDS ORDERED: Bacitracin Oint 1 GM U/D Packet TOP ONE (19:32)
[2023-08-09] MEDS ORDERED: HYDROmorphone 0.5 MG/0.5 ML Syringe IM ONE (19:35)
== END 2023-08-09 20:44 | disposition home or self-care (01) ==
LOC: JP.ED 18:56
DX: S62.521A Displaced fracture of distal phalanx of right thumb, initial encounter for closed fracture (principal); Z87.891 Personal history of nicotine dependence; Z79.84 Long term (current) use of oral hypoglycemic drugs; Z79.899 Other long term (current) drug therapy; W23.0XXA Caught, crushed, jammed, or pinched between moving objects, initial encounter
CPT/HCPCS: 12001; 73140; 96372; 99283; A9270; J1170